=== PATIENT | male | born 1995 | race Caucasian/White ===

== ENCOUNTER 2016-11-02 13:32 | Observation (INO) | payer BC, OTHER ==
[~2016-11-02] VITALS: Ht 177.8 cm; Wt 81.2 kg
[2016-11-02] MEDS ORDERED: ACET-2267 PO (13:45)
--- NOTE | 2016-11-02 14:03 | ED EENT ---
History of Present Illness General Chief Complaint: Eye Problems Stated Complaint: YELLOW EYES, MONO Nursing Triage Note: Ambulatory to ED 10 with reports of yellow coloring to his eyes. Patient reports that he was diagnosed Friday with mono by [facility]. Patient reports that he has had intermittent fever since, but did not notice any problems with his eyes until today. Source: patient Exam Limitations: no limitations History of Present Illness Time seen by provider: 14:01 Initial Comments To ER with yellowish discoloration of his eyes noticed this morning. On Friday he was at [facility] to have lab work drawn for a sore throat. On Friday, they called him to report that he was positive for mononucleosis. Reports that he still has a sore throat but otherwise doesn't feel too bad, just concerned about the yellowish discoloration of his eyes. Timing/Duration: gradual Severity: moderate Location: throat Prearrival Treatment: no prearrival treatment Allergies and Home Medications Allergies Coded Allergies: No Known Drug Allergies (Unverified , 11/02/16) Home Medications Acetaminophen 500 Mg Tablet, 1,000 MG PO Q8H PRN for PAIN-MILD OR TEMPATURE, ( Reported) Review of Systems Constitutional: see HPI, No chills, No fever, malaise Eyes: See HPI, Other (icterus) Ears: No Symptoms Reported Nose: no symptoms reported Mouth: no symptoms reported Throat: see HPI, pain Respiratory: no symptoms reported Cardiovascular: no symptoms reported Musculoskeletal: no symptoms reported Skin: no symptoms reported Neurological: No Symptoms Reported Hematologic/Lymphatic: No Symptoms Reported, See HPI Past Vuziwqm-Cycbdu-Aaejfz Hx Patient Social History Alcohol Use: Occasionally Uses Recreational Drug Use: No Smoking Status: Never a Smoker 2nd Hand Smoke Exposure: No Recent Foreign Travel: No Contact w/Someone Who Travel: No Recent Infectious Disease Expo: No Recent Hopitalizations: No Immunizations Up To Date Tetanus Booster (TDap): More than 5yrs PED Vaccines UTD: Yes Seasonal Allergies Seasonal Allergies: Yes Surgeries HX Surgeries: No Respiratory Hx Respiratory Disorders: No Cardiovascular Hx Cardiac Disorders: No Neurological Hx Neurological Disorders: No Reproductive System Hx Reproductive Disorders: No Genitourinary Hx Genitourinary Disorders: No Gastrointestinal Hx Gastrointestinal Disorders: No Musculoskeletal Hx Musculoskeletal Disorders: No Endocrine Hx Endocrine Disorders: No HEENT HX ENT Disorders: No Cancer Hx Cancer: No Psychosocial Hx Psychiatric Problems: No Integumentary HX Skin/Integumentary Disorder: No Blood Transfusions Hx Blood Disorders: No Physical Exam Vital Signs Vital Sign - Last 12Hours 11/02/16 13:40 Temp 99.0 Pulse 78 Resp 16 B/P (MAP) 137/91 Pulse Ox 96 O2 Delivery Room Air General Appearance: WD/WN, no apparent distress Eyes: bilateral eye EOMI, bilateral eye PERRL, bilateral eye normal inspection Ears: bilateral ear TM normal, bilateral ear auricle normal, bilateral ear canal normal Mouth/Throat: other (tonsillar erythema with exudate) Neck: non-tender, full range of motion Cardiovascular: regular rate, rhythm, no murmur Respiratory: normal breath sounds, no respiratory distress, no accessory muscle use Gastrointestinal: normal bowel sounds, non tender, soft Neurologic/Psychiatric: alert, normal mood/affect, oriented x 3 Skin: normal color, warm/dry Progress/Results/Core Measures Results/Orders Lab Results Laboratory Tests Test 11/02/16 14:09 11/02/16 14:13 Range/Units Urine Color YELLOW Urine Clarity CLEAR Urine pH 8 5-9 Urine Specific [place] 1.015 L 1.016-1.022 Urine Protein NEGATIVE NEGATIVE Urine Glucose (UA) NEGATIVE NEGATIVE Urine Ketones NEGATIVE NEGATIVE Urine Nitrite NEGATIVE NEGATIVE Urine Bilirubin 1+ H NEGATIVE Urine Urobilinogen 1 NORMAL MG/DL Urine Leukocyte Esterase NEGATIVE NEGATIVE Urine RBC (Auto) NEGATIVE NEGATIVE Urine RBC NONE /HPF Urine WBC RARE /HPF Urine Squamous Epithelial Cells NONE /HPF Urine Crystals NONE /LPF Urine Bacteria NEGATIVE /HPF Urine Casts NONE /LPF Urine Mucus NEGATIVE /LPF Urine Culture Indicated NO White Blood Count 12.6 H 4.3-11.0 10^3/uL Red Blood Count 5.47 4.35-5.85 10^6/uL Hemoglobin 17.3 13.3-17.7 G/DL Hematocrit 49 40-54 % Mean Corpuscular Volume 90 80-99 FL Mean Corpuscular Hemoglobin 32 25-34 PG Mean Corpuscular Hemoglobin Concent 35 32-36 G/DL Red Cell Distribution Width 12.7 10.0-14.5 % Platelet Count 122 L 130-400 10^3/uL Mean Platelet Volume 10.5 H 7.4-10.4 FL Neutrophils (%) (Auto) 42-75 % Lymphocytes (%) (Auto) 12-44 % Monocytes (%) (Auto) 0-12 % Eosinophils (%) (Auto) 0-10 % Basophils (%) (Auto) 0-10 % Neutrophils # (Auto) 1.8-7.8 X 10^3 Lymphocytes # (Auto) 1.0-4.0 X 10^3 Monocytes # (Auto) 0.0-1.0 X 10^3 Eosinophils # (Auto) 0.0-0.3 10^3/uL Basophils # (Auto) 0.0-0.1 10^3/uL Neutrophils % (Manual) 20 % Lymphocytes % (Manual) 7 % Monocytes % (Manual) 1 % Eosinophils % (Manual) 0 % Basophils % (Manual) 0 % Band Neutrophils 0 % Reactive Lymphocytes 72 % Blood Morphology Comment NORMAL Sodium Level 138 135-145 MMOL/L Potassium Level 4.2 3.6-5.0 MMOL/L Chloride Level 101 98-107 MMOL/L Carbon Dioxide Level 26 21-32 MMOL/L Anion Gap 11 5-14 MMOL/L Blood Urea Nitrogen 9 7-18 MG/DL Creatinine 0.98 0.60-1.30 MG/DL Estimat Glomerular Filtration Rate > 60 BUN/Creatinine Ratio 9 Glucose Level 111 H 70-105 MG/DL Calcium Level 9.3 8.5-10.1 MG/DL Total Bilirubin 3.8 H 0.1-1.0 MG/DL Direct Bilirubin 2.8 H 0.0-0.3 MG/DL Aspartate Amino Transf (AST/SGOT) 460 H 5-34 U/L Alanine Aminotransferase (ALT/SGPT) 1259 H 0-55 U/L Alkaline Phosphatase 297 H 40-136 U/L Total Protein 7.2 6.4-8.2 G/DL Albumin 4.2 3.2-4.5 G/DL Lipase 85 H 8-78 U/L Monoscreen POSITIVE H NEGATIVE 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 Mcclure. We'll admit patient observation, IV fluids, pain medicine and repeat liver enzymes in the morning. Impression Impression: Primary Impression: Mononucleosis, infectious, with hepatitis Disposition: HOME, SELF-CARE Condition: Stable Departure-Patient Inst. Decision time for Depature: 15:10 Referrals: [facility] (PCP) Primary Care Physician Patient Instructions: Mononucleosis Test Add. Discharge Instructions: 1. Your eyes are yellowish in coloration because of the hepatitis likely to be caused by your mononucleosis 2. You should follow-up with [facility] on Friday to repeat liver enzyme testing. All discharge instructions reviewed with patient and/or family. Voiced understanding. Copy Copies To 1: JAIMEE CLARKE MD, PETER J APRN Nov 02, 2016 14:03
[2016-11-02 14:15] LABS: KETONES,URINE NEGATIVE (NEGATIVE); LEUKOCYTE ESTERASE ,URINE NEGATIVE (NEGATIVE); NITRITE,URINE NEGATIVE (NEGATIVE); PH,URINE 8 (5-9); PROTEIN,URINE NEGATIVE (NEGATIVE); UROBILINOGEN,URINE 1 MG/DL (NORMAL)
[2016-11-02 14:21] LABS: MEAN CORPUSCULAR HEMOGLOBIN 32 PG (25-34); MEAN CORPUSCULAR HGB CONC 35 G/DL (32-36); MEAN CORPUSCULAR VOLUME 90 FL (80-99); MEAN PLATELET VOLUME 10.5 FL (7.4-10.4); PLATELET COUNT 122 10^3/uL (130-400); RED BLOOD COUNT 5.47 10^6/uL (4.35-5.85); RED CELL DISTRIBUTION WIDTH 12.7 % (10.0-14.5); WHITE BLOOD COUNT 12.6 10^3/uL (4.3-11.0)
[2016-11-02 14:35] LABS: BILIRUBIN,URINE 1+ (NEGATIVE); WBC,URINE RARE /HPF
[2016-11-02 14:38] LABS: ALANINE AMINOTRANSFERASE 1259 U/L (0-55); ALBUMIN 4.2 G/DL (3.2-4.5); ANION GAP 11 MMOL/L (5-14); ASPARTATE AMINO TRANSFERASE 460 U/L (5-34); BAND NEUTROPHILS 0 %; BASOPHILS % (MANUAL) 0 %; BILIRUBIN,DIRECT 2.8 MG/DL (0.0-0.3); BLOOD UREA NITROGEN 9 MG/DL (7-18); BUN/CREATININE RATIO 9; CALCIUM 9.3 MG/DL (8.5-10.1); CARBON DIOXIDE 26 MMOL/L (21-32); CHLORIDE 101 MMOL/L (98-107); CREATININE SERUM 0.98 MG/DL (0.60-1.30); EOSINOPHILS % (MANUAL) 0 %; GFR ESTIMATED > 60; GLUCOSE 111 MG/DL (70-105); LYMPHOCYTES % (MANUAL) 7 %; NEUTROPHILS % (MANUAL) 20 %; POTASSIUM 4.2 MMOL/L (3.6-5.0); REACTIVE LYMPHOCYTES 72 %; SODIUM 138 MMOL/L (135-145); TOTAL PROTEIN 7.2 G/DL (6.4-8.2)
[2016-11-02 14:43] LABS: BILIRUBIN,TOTAL 3.8 MG/DL (0.1-1.0)
--- NOTE | 2016-11-02 15:35 | Diagnostic Imaging Report ---
PROCEDURE: US Abdomen, limited. TECHNIQUE: Multiple realtime grayscale images were obtained over the abdomen in various projections. INDICATION: Elevated liver enzymes. FINDINGS: Liver parenchyma is homogeneous with normal echotexture. Gallbladder is contracted. There are no stones or wall thickening seen. Common duct is not dilated. Right kidney appears normal. Spleen is upper limits of normal size. IMPRESSION: Negative gallbladder sonogram. Dictated by: Dictated on workstation # [id number]
[2016-11-02] MEDS ORDERED: ONDANSETRON 4 MG/2 ML (SDV) Z0FRAN IVP PRN (17:15)
[2016-11-02] MEDS ORDERED: fentaNYL INJECTION 100 MCG/2 ML AMP IVP PRN (17:15)
[2016-11-02] MEDS: NS IV 1000 ML 1,000 ML IV SCH (17:35)
[2016-11-02] MEDS: IBUPROFEN 800 MG (MOTRIN) TAB PO PRN (19:29)
[2016-11-02 20:00] VITALS: BP 132/69
[2016-11-03 00:10] VITALS: BP 119/73
[2016-11-03] MEDS: NS IV 1000 ML 1,000 ML IV SCH ×2 (01:52→09:53)
[2016-11-03 04:00] VITALS: BP 122/68
[2016-11-03 06:15] LABS: EOSINOPHILS # (AUTO) 0.1 10^3/uL (0.0-0.3); EOSINOPHILS % (AUTO) 0 % (0-10); LYMPHOCYTES # (AUTO) 9.8 X 10^3 (1.0-4.0); LYMPHOCYTES % (AUTO) 74 % (12-44); MEAN CORPUSCULAR HEMOGLOBIN 31 PG (25-34); MEAN CORPUSCULAR HGB CONC 34 G/DL (32-36); MEAN CORPUSCULAR VOLUME 92 FL (80-99); MEAN PLATELET VOLUME 11.1 FL (7.4-10.4); MONOCYTES # (AUTO) 1.6 X 10^3 (0.0-1.0); MONOCYTES % (AUTO) 12 % (0-12); PLATELET COUNT 133 10^3/uL (130-400); RED CELL DISTRIBUTION WIDTH 12.9 % (10.0-14.5); WHITE BLOOD COUNT 13.2 10^3/uL (4.3-11.0)
[2016-11-03 06:21] LABS: ALANINE AMINOTRANSFERASE 1149 U/L (0-55); ALBUMIN 3.8 G/DL (3.2-4.5); ANION GAP 11 MMOL/L (5-14); ASPARTATE AMINO TRANSFERASE 427 U/L (5-34); BILIRUBIN,TOTAL 3.5 MG/DL (0.1-1.0); BLOOD UREA NITROGEN 7 MG/DL (7-18); BUN/CREATININE RATIO 8; CALCIUM 8.7 MG/DL (8.5-10.1); CARBON DIOXIDE 24 MMOL/L (21-32); CHLORIDE 103 MMOL/L (98-107); CREATININE SERUM 0.86 MG/DL (0.60-1.30); GFR ESTIMATED > 60; GLUCOSE 105 MG/DL (70-105); LIPASE 34 U/L (8-78); POTASSIUM 4.2 MMOL/L (3.6-5.0); SODIUM 138 MMOL/L (135-145); TOTAL PROTEIN 6.5 G/DL (6.4-8.2)
[2016-11-03 06:26] LABS: BASOPHILS % (AUTO) 6 % (0-10); NEUTROPHILS % (AUTO) 8 % (42-75)
[2016-11-03 06:27] LABS: BASOPHILS # (AUTO) 0.8 10^3/uL (0.0-0.1)
[2016-11-03] MEDS: IBUPROFEN 800 MG (MOTRIN) TAB PO PRN (07:18)
[2016-11-03 08:00] VITALS: BP 125/89
[2016-11-03 12:00] VITALS: BP 126/81
--- NOTE | 2016-11-03 12:50 | Short Stay Summary-Hospitalist ---
HPI History of Present Illness: HPI/Chief Complaint CC: Elevated liver enzymes severe with Beckham HPI: This is a 21yoWM dx with mono last week that was brought to er due to jaundice and was found to have significantly elevated LFT's. I admitted him due to recent Tylenol use that has been since stopped and to assure no worsening of liver function occurred. He is eating and drinking well and is otherwise ready to go home. He will see Dr Cortez tomorrow and undergo close monitoring. Source: patient Exam Limitations: no limitations Date Seen 11/03/16 Attending Physician La Nena Mcclure DO [facility] Referring Physician Date of Admission Nov 02, 2016 at 15:41 Home Medications & Allergies Home Medications Reviewed patient Home Medication Reconciliation Form Allergies Allergies Coded Allergies No Known Drug Allergies (Unverified11/02/16) Past Exrdyfj-Pirulg-Ljlsmu Hx Patient Social History Marrital Status: single Employed/Student: student, full-time Alcohol Use: Occasionally Uses Recreational Drug Use: No Smoking Status: Never a Smoker 2nd Hand Smoke Exposure: No Physical Abuse Screen: No Sexual Abuse: No Recent Foreign Travel: No Contact w/other who traveled: No Recent Hopitalizations: No Recent Infectious Disease Expo: No Immunizations Up To Date Tetanus Booster (TDap): More than 5yrs Seasonal Allergies Seasonal Allergies: Yes Surgeries HX Surgeries: No Respiratory Hx Respiratory Disorders: No Cardiovascular Hx Cardiovascular Disorders: No Neurological Hx Neurological Disorders: No Reproductive System Hx Reproductive Disorders: No Genitourinary Hx Genitourinary Disorders: No Gastrointestinal Hx Gastrointestinal Disorders: No Musculoskeletal Hx Musculoskeletal Disorders: No Endocrine Hx Endocrine Disorders: No HEENT HX ENT Disorders: No Cancer Hx Cancer: No Psychosocial Hx Psychiatric Problems: No Integumentary HX Skin/Integumentary Disorder: No Blood Transfusions Hx Blood Disorders: No Family Medical History Family Hx: Patient reports no known family medical history. Review of Systems Constitutional: no symptoms reported, dizziness, fever, malaise, weakness EENTM: throat pain Respiratory: no symptoms reported Cardiovascular: no symptoms reported Gastrointestinal: no symptoms reported Genitourinary: no symptoms reported Musculoskeletal: no symptoms reported Skin: no symptoms reported Psychiatric/Neurological: No Symptoms Reported All Other Systems Reviewed Negative Unless Noted: Yes Physical Exam Physical Exam Vital Signs Vital Sign - Last 12Hours 11/02/16 13:40 Temp 99.0 Pulse 78 Resp 16 B/P (MAP) 137/91 Pulse Ox 96 O2 Delivery Room Air Capillary Refill : Less Than 3 Seconds General Appearance: No Apparent Distress, WD/WN Eyes: Bilateral Eye Normal Inspection, Bilateral Eye PERRL HEENT: PERRL/EOMI, Normal ENT Inspection, Pharynx Normal Neck: Full Range of Motion, Normal Inspection, Non Tender, Supple, Carotid Bruit Respiratory: Chest Non Tender, Lungs Clear, Normal Breath Sounds, No Accessory Muscle Use, No Respiratory Distress Cardiovascular: Regular Rate, Rhythm, No Edema, No Gallop, No JVD, No Murmur, Normal Peripheral Pulses Gastrointestinal: Normal Bowel Sounds, No Organomegaly, No Pulsatile Mass, Non Tender, Soft Back: Normal Inspection, No CVA Tenderness, No Vertebral Tenderness Extremity: Normal Capillary Refill, Normal Inspection, Normal Range of Motion, Non Tender, No Calf Tenderness, No Pedal Edema Neurologic/Psychiatric: Alert, Oriented x3, No Motor/Sensory Deficits, Normal Mood/Affect Skin: Normal Color, Warm/Dry Lymphatic: No Adenopathy Results Results/Procedures Lab Laboratory Tests 11/02/16 14:13 11/03/16 05:40 Short Stay Diagnosis Discharge Diagnosis-Short Stay Admission Diagnosis Assessment: Severely elevated LFT's with acute mono and excessive Tylenol and ibuprofen use Jaundice due to # 1 Final Discharge Diagnosis Assessment: Severely elevated LFT's with acute mono and excessive Tylenol and ibuprofen use Jaundice due to # 1 Conclusion Plan DC home with close f/u Dr Cortez tomorrow. Stop excessive use of ibuprofen and DC Tylenol products. Clinical Quality Measures DVT/VTE Risk/Contraindication: Risk Factor Score Per Nursin RFS Level Per Nursing on Admit: 1=Low/No VTE PPX LA NENA MCCLURE DO Nov 03, 2016 12:50
[2016-11-03] MEDS ORDERED: CATHETER FLUSH 10 ML SYR IV PRN (13:00)
== END 2016-11-03 12:45 | disposition home or self-care (01) ==
LOC: EDUNIT# 13:32 → ER 13:34 → UNDOADMOB 15:41 → 4TH 15:41 → UNDODISOB 11-03 13:08
PROVIDERS: ADMIT Internal Medicine; ATTEND Internal Medicine
DX: B27.89 Other infectious mononucleosis with other complication (principal)
CPT/HCPCS: 36415; 76705; 80053; 80329; 81000; 82248; 83690; 85007; 85025; 85027; 86308; G0378